=== PATIENT | male | born 1985 | race Caucasian/White ===

== ENCOUNTER 2019-03-30 06:13 | Observation (INO) | payer OTHER, SELFPAY ==
[2019-03-19 12:43] VITALS: BMI 27.5
[2019-03-30] VITALS (15 sets, daily range): BP systolic 104–142; BP diastolic 60–96; PULSE 55–86; RESP 10–20; TEMP 36.1–37.2; O2SAT 94–100; BMI 25.9
--- NOTE | 2019-03-30 | DI.RAD.S_ITS ---
PROCEDURE: XR CERVICAL SPINE 2V OR 3V INDICATIONS: ACDF TECHNIQUE: 2 view(s) of the cervical spine were acquired. COMPARISON: [facility], XR CERVICAL SPINE 2 OR 3 VIEWS, 01/19/2019, 12:02. FINDINGS: Bones: Postsurgical changes compatible with C5-C6 and C6-C7 disc prosthesis placement noted. Soft tissues: No prevertebral soft tissue swelling. IMPRESSION: Expected postsurgical change for C5-C6 and C6-C7 disc prosthesis placement. Dictated by: Shauna Reyes MD, PhD on 03/30/2019 at 9:39 Approved by: Shauna Reyes MD, PhD on 03/30/2019 at 9:40
[2019-03-30] MEDS: LACTATED RINGERS 1,000 ML 42 ML IV (07:00)
--- NOTE | 2019-03-30 07:15 | SUR.PREOP ---
Addendum entered by Tarsha Montiel R.N. 03/30/19 09:56: CHARTED IN ERROR RIGHT ARM, SHOULD OF CHARTED LEFT ARM AND FINGERS ON LEFT HAND. Original Note: pt reports has been experiencing numbness and tingling in right arm into all fingers on right hand.
--- NOTE | 2019-03-30 07:28 | PM.PREOP ---
Pre-operative Note Interval Note History & Physical reviewed/Exam performed by Physician: Yes Changes to H&P: No
--- NOTE | 2019-03-30 07:33 | SUR.PREOP ---
DR. NARANJO AND DR. MCLAIN NOTIFIED OF PT FASTING BG READING. PT ASYMPTOMATIC AT THIS TIME. NO NEW ORDERS RECEIVED FROM MDS.
[2019-03-30] MEDS: CEFAZOLIN 2 GM/100 ML FROZ.PIGGY IV (07:43)
--- NOTE | 2019-03-30 08:18 | SUR.OPER ---
Supine on padded OR bed, head on gel doughnut , bilateral arms padded and tucked at side, legs uncrossed, safety belt at thigh, tape over blanket over lower legs .
[2019-03-30] MEDS: THROMBIN (RECOMBINANT) 5,000 UNIT VIAL 5000 UNIT TOP (08:29)
[2019-03-30] MEDS: SODIUM CHLORIDE 0.9% 1,000 ML, GENTAMICIN 80 MG IRR (08:30)
[2019-03-30] MEDS: ACETAMINOPHEN 1,000 MG/100 ML VIAL 1000 MG IV (08:52)
[2019-03-30] MEDS: BUPIVACAINE 0.5% W/ EPI (PF) VIAL 30 ML INJ (09:09)
--- NOTE | 2019-03-30 09:13 | PM.OP.1 ---
Operative Date/Time/Diagnoses Date of procedure: 03/30/19 Time of procedure: 09:13 Pre-op diagnosis: Cervical disc herniation with radiculopathy Post-op diagnosis: same Procedure & Clinicians Procedure: C5-6, C6-7 anterior diskectomy an artificial disc replacement Use of microscope Same procedure as scheduled: Yes Indications: [age] year old male with intractable pain from cervical disc herniations. They had failed conservative management and requested operative intervention. Risks and benefits of surgery were discussed and appropriate consents were obtained. Surgeon: Praful Rodgers Vacuum Forming Machine Operator: Em Orozco Anesthesia Type: General Operative Notes Findings: None Closure Type: primary Specimen(s): none sent Prosthetic devices, grafts, tissues, transplants, or devices: Stephenie Mobi-C Estimated Blood Loss (mL): 5 Blood products transfused: none Procedure in detail: Patient was brought to the operating room and intubated on the table. A time-out was performed. Preoperative antibiotics were given. The neck was prepped and draped in the standard sterile fashion. Using a skin fold, we made a 3 cm oblique incision on the left side. We used Bovie to go through the platysma and then did a standard anterolateral blunt dissection down to the precervical fascia. Fascia was nicked and elevated up. A marker was placed and x-ray was taken for localization. We then subperiosteally elevated up the longus colli muscles. Self-retaining retractors were placed. [place] pins were placed under x-ray guidance to be parallel to the endplates. We then brought in the microscope. A scalpel used to perform an annulotomy. We then used a combination of pituitaries and curettes and Kerrison to perform a complete anterior diskectomy at C6-7. We took down the PLL and used Kerrison to remove any posterior disc material and osteophytes. At the end we could from the nerve hook cephalad caudally and out the foramen and everything was opened. We distracted open with the parallel odd job laborer. We then used the horseshoes for sizing. We then used the trials. We then inserted a 5 x 15 x 15 mm size Mobi-C artificial disc replacement under fluoroscopic guidance for positioning. The traction was released and x-ray was checked again. We then went up to the C5-6 level. The retractors were positioned and opened. A complete diskectomy was performed with scalpel, pituitaries, curettes, and Kerrisons. We took down the PLL. We removed disc fragments until we could easily run a nerve hook and there was no further pressure in the foramen or posterior to the vertebral body wall. We then trialed and placed another 5 x 15 x 15 mm Mobi-C at C5-6 using fluoroscopy. The traction was released and an x-ray was checked again. The self-retaining retractors and Detroit pins were removed and final x-rays taken. The wound was irrigated. There was no bleeding. The carotid was beating nicely. The platysma was closed. The superficial was closed. The skin was closed. A sterile dressing was placed. They were then extubated and brought to recovery room with no complications. Complications: none Condition: stable Disposition: PACU Plan for aftercare: Overnight admission. Up with physical therapy. Soft collar for comfort.
[2019-03-30] MEDS: fentaNYL 100 MCG/2 ML INJ 50 MCG IV ×2 (09:30→09:40)
[2019-03-30] MEDS: HYDROMORPHONE 2 MG INJ 0.25 MG IV ×4 (09:35→09:50)
--- NOTE | 2019-03-30 09:54 | SUR.PHASEI ---
REPORT CALLED TO SUSHIL GARCIA ON ACUTE CARE FLOOR. PT IN STABLE CONDITION, VSS. PT RESTING IN BED WITH EYES CLOSED, EASILY AROUSABLE TO VOICE WHEN SPOKEN TO. SURGICAL SITE OBSERVED TO BE C/D/I. SOFT COLLAR IN PLACE. IV SITE CLEAR AND INFUSING WITHOUT DIFFICULTLY. PT DENIES ANY NAUSEA AND STATES PAIN IS AT TOLERABLE LEVEL AT THIS TIME. PT APPEARS COMFORTABLE AT THIS TIME.
--- NOTE | 2019-03-30 10:18 | SUR.PHASEI ---
PT TRANSFERRED TO ACUTE CARE FLOOR IN STABLE CONDITION. PT ALERT AND TALKING TO RN DURING TRANSPORT. BEDSIDE REPORT GIVEN TO SUSHIL GARCIA UPON ARRIVAL. PT AT BEDSIDE. TRANSFERRED CARE OF PT TO SUSHIL GARCIA AT THAT TIME.
[2019-03-30] MEDS: LACTATED RINGERS 1,000 ML 125 ML IV (10:30)
--- NOTE | 2019-03-30 11:44 | PC.NURSE ---
Addendum entered by Valerie Schmitt R.N. 03/30/19 13:24: Pt up and voided earlier, given 2 vicodin and helpful for pain. Pt is hoping to go home later this afternoon. home to deal with their children. He will call her for a ride if he gets to discharge home. Original Note: Pt admitted to room around 1045. Dressing to anterior neck is cdi s drainage. Soft collar in place. Pt is on LR at 125cc/hr. He is visiting with in room. Denies pain at this time and is also trying to nap. Tolerated some applesauce and pudding without any nausea. Pt will be admitted to the hospital after his nap.
[2019-03-30] MEDS: HYDROCODONE/ACET 5/325 TABLET 2 TAB PO (12:44)
--- NOTE | 2019-03-30 14:25 | PM.PNPO.1 ---
Subjective Date Patient Seen: 03/30/19 Time Patient Seen: 14:25 Interval history: He is doing great. He has some ache and the bottom of his neck but no more radicular symptoms in the arms. He is not having any shortness of breath or difficulty swallowing. He just comfortably 8 his lunch without difficulty. He has been up and walking around. He requested discharge home Exam Vital Signs (past 8 hours): - 03/30/19 06:49 03/30/19 09:26 03/30/19 09:31 Temperature 97.2 F L 97.1 F L Pulse Rate 71 86 86 Respiratory Rate 15 10 L 10 L Blood Pressure 125/86 133/85 125/91 H Pulse Oximetry 100 97 97 03/30/19 09:36 03/30/19 09:41 03/30/19 09:46 Temperature 98.1 F Pulse Rate 80 75 76 Respiratory Rate 10 L 14 12 Blood Pressure 131/86 120/83 118/82 Pulse Oximetry 97 94 95 03/30/19 09:51 03/30/19 09:55 03/30/19 10:06 Temperature 97.0 F L 98.4 F Pulse Rate 61 66 62 Respiratory Rate 11 L 11 L 11 L Blood Pressure 113/76 116/76 111/72 Pulse Oximetry 98 95 98 03/30/19 10:15 03/30/19 10:45 03/30/19 11:15 Temperature 99.0 F 97.2 F L 96.9 F L Pulse Rate 65 57 L 55 L Respiratory Rate 16 16 16 Blood Pressure 117/79 112/66 104/60 Pulse Oximetry 97 95 95 03/30/19 12:00 03/30/19 12:15 03/30/19 13:15 Temperature 98.7 F 97.6 F 97.5 F L Pulse Rate 75 76 76 Respiratory Rate 20 16 16 Blood Pressure 142/96 H 108/68 113/61 Pulse Oximetry 95 96 96 Oxygen Delivery Method Room Air Oxygen Flow Rate 0 Const Orientation: alert and oriented x3 Back/Spine/Pelvis Other: Dressing CDI. 5/5 motor both upper extremities Assessment & Plan Post-op Postoperative Procedures Operation Date: 03/30/19 07:45 Actual Procedures Side Surgeon p C5-6 & C6-7 Anterior discectomy and artifical disc replacement Praful Rodgers MD he is doing very well. I am comfortable with him going home at this point. Quality VTE Deep Vein Thrombosis/Pulmonary Embolism Present on Admission: No
--- NOTE | 2019-03-30 14:45 | PT.IIE ---
Current Diagnoses Other cervical disc displacement, unspecified cervical region (03/30/19) Surgery Performed Operation Date: 03/30/19 07:45 Actual Procedures p C5-6 & C6-7 Anterior discectomy and artifical disc replacement - Praful Rodgers MD Surgical History (Last Updated 03/19/19 @ 13:09 by Mena Quiroga, RN) History of ear surgery (Acute) Medical History (Last Updated 03/19/19 @ 13:09 by Mena Quiroga, RN) Numbness and tingling in left arm (Acute) Rash (Acute) [place] teeth removed (Acute) Physical Therapy Inpatient Evaluation/Re-Eval M1 PT/OT-IP Prior Functional Status Start: 03/30/19 16:38 Freq: NEEDED Status: Active Protocol: Document 03/30/19 14:52 [facility] (Rec: 03/30/19 17:11 [facility] [id number]) Medical Review Prior Functional Status Medical History Reviewed Yes Communication Independent. Mobility and Gait Independent. Activities of Daily Living and IADL's Independent. Social History Household Members spouse children Living Arrangements House Number of Floors (Floors) Two Floors Number of Stairs To Enter/Railing? 3 steps and bilateral wide hand rails. 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 [employer] M2 PT-IP Current Condition Start: 03/30/19 17:11 Freq: NEEDED Status: Active Protocol: Document 03/30/19 14:45 AB (Rec: 03/30/19 17:42 AB [id number]) Physical Therapy Current Condition Current Condition Evaluation Date 03/30/19 Treatment Diagnosis s/p C5-7 ACDF; difficulty in walking Onset Date 03/30/19 Precautions Cervical Spine Precautions Soft Collar for Comfort No Heavy Lifting Log Roll M3 PT-IP Subjective Start: 03/30/19 17:11 Freq: NEEDED Status: Active Protocol: Document 03/30/19 14:45 AB (Rec: 03/30/19 17:42 AB [id number]) Subjective Physical Therapy Visit Type Type Initial Evaluation Visit Start Time 14:45 Visit Stop Time 15:19 Total Visit Minutes 34 Number of AS400 OPERATOR Visits 0 Physical Therapy Visit Comments Patient Comments pt agreeable to do PT Therapy Pain Assessment Pain When Pain Assessed At Rest Pain Present Pain Present Pain Reported Location neck Intensity 7 Scale Used Numeric (1 - 10) Pain Management Techniques Timing of Activity with Medications M4 PT-IP Mobility and Gait Start: 03/30/19 17:11 Freq: NEEDED Status: Active Protocol: Document 03/30/19 14:45 AB (Rec: 03/30/19 17:42 AB [id number]) PT-Bed Mobility Assessment Rolling Type of Rolling Log Rolling Level of Assist Standby Assistance Supine to Sit Supine to Sit Standby Assistance Sit to Supine Sit to Supine Standby Assistance Scooting Scooting to Edge of Bed Standby Assistance PT-Transfer Assessment Sit to and From Stand Sit to and from Stand Standby Assistance Equipment Transfer Assistive Device None Gait Belt Orthotic/Prosthetic Devices or Brace: Yes Gait Assessment Gait Gait Assistance Required: Standby Assistance Distance (Feet) 250 Able to Maintain Weight Bearing Status Yes During Gait Assistive Devices Assistive Device None Gait Belt Orthotic/Prosthetic Devices or Brace: Yes Stair Climbing Assessment Evaluation Level of Assist On Stairs Standby Assistance Devices Stair Climbing Assistive Devices Left Railing Technique/Endurance Stair Climbing Direction Ascend and Descend Stair Climbing Technique Step Over Step Number of Steps Climbed 3 Query Text: Stair Climbing Set # Repetitions (reps) 1 PT-Balance Assessment Sitting Balance and Reactions Static Sitting Balance Ability Good Dynamic Sitting Balance Ability Good Standing Balance and Reactions Static Standing Balance Ability Good Dynamic Standing Balance Ability Good M5 PT-IP Objective Assessments Start: 03/30/19 17:11 Freq: NEEDED Status: Active Protocol: Document 03/30/19 14:45 AB (Rec: 03/30/19 17:42 AB [id number]) Orientation Orientation/Cognition Level of Alertness Alert Orientation Name Age Birthday Month Date Year Day of Week Place Situation Language Function Ability No Deficits Noted Safety Awareness Understands Safety Issues Memory Description No Deficits Noted Gross Range of Motion Lower Extremity ROM Assessment Within Functional Limits Strength Lower Extremity Strength Assessment Bilaterally Impaired Hip 4-/5 Knee 4-/5 Ankle 4-/5 Coordination Assessment Gross Coordination Gross Coordination WNL Sensation Assessment Sensation Gross Sensation WNL Muscle Tone Muscle Tone WNL Yes M6 PT-IP Treatment Start: 03/30/19 17:11 Freq: NEEDED Status: Active Protocol: Document 03/30/19 14:45 AB (Rec: 03/30/19 17:42 AB [id number]) Physical Therapy Treatment Education Education Provided Precautions Weight Bearing Status Post-Op Packet Safety M7 PT-IP Assessment and Plan Start: 03/30/19 17:11 Freq: NEEDED Status: Active Protocol: Document 03/30/19 14:45 AB (Rec: 03/30/19 17:42 AB [id number]) PT Summary Assessment and Plan Potential Rehabilitation Potential Good Status of Condition at Evaluation Stable Summary Impairments Pain ROM Strength Balance Bed Mobility Transfers Gait Activity Tolerance Assessment Summary pt is doing well with mobility and plans to go home today with assistance from his spouse. Goals Bed Mobility Goal Independent Transfer Goal Independent Gait Goal Independent Gait Distance 250 Other Goals up/down 3 steps with 1 rail mod I Days to Meet Goals 3 Frequency of Treatment Frequency Of Treatment Once a Day Treatment Plan Physical Therapy Treatment Plan Bed Mobility Training Transfer Training Gait Training Therapeutic Exercise Balance Retraining Post Op Education Discharge Planning Hot or Cold Pack Neuromuscular Re-ed Coordination Retraining Manual Therapy Recommendations To Nursing Amount of Assist Needed Standby Assistance Discharge Recommendations PT Discharge Recommendations Home with Assistance
--- NOTE | 2019-03-30 14:59 | CM.DANOTE ---
Discharge Planning/Care Management DCP: assessment: case received, EMR reviewed. Pt is a 33 year old male who admitted this morning for a planned spinal/cercical surgery: Surgeon: Dr. Rodgers. Payer: [employer] Pt was expected to say overnight for recovery and an anticipated d/c home tomorrow. See now that Dr. Rodgers returned this afternoon, noted that pt was up independently, doing well and desired a d/c today and he ok'd him for same. P: home today, spouse picking him up. No d/c needs are identified beyond orthopedic followup. CM Discharge Assessment Start: 03/30/19 14:58 Freq: Status: Active Protocol: Document 03/30/19 14:58 ITV (Rec: 03/30/19 14:59 ITV [id number]) Discharge Planning Assessment Advance Directives? No: Declines further information History Provided By Patient Medical Record Prior Living Arrangements House Household Members spouse children Independent with ADL's Yes Is patient alert and oriented? Yes Comment no need, home shortly. Review Status In Process Next Review Type Continued Stay Review Pre-Anesthesia Assessment Start: 03/19/19 12:43 Freq: Status: Active Protocol: Document 03/19/19 12:43 CAB (Rec: 03/19/19 13:23 CAB [id number]) Pre-Anesthesia Assessment Patient Information Reviewed Via Phone Assessment Assessment Completed With Patient Primary Care Provider Sasha Christina Seen Specialist in Last 12 Months Yes Specialist Seen Orthopedist Primary Language Micronesian Dental Office Coordinator Required No Height 172.72 cm Weight 82.1 kg Body Mass Index (BMI) 27.5 Hearing Ability Normal Visual Assist Contacts Glasses Dentition Type Teeth, Natural Present Teeth, Broken Barriers to Learning None Other Aids No Hx Anesthesia Reactions No Hx Family Anesthesia Reaction No Hx Malignant Hyperthermia No Hx Blood Transfusions No Anesthesia Review Requested No Private Duty Nurse No alcohol intake current alcohol intake frequency a few times a week Smoking Status Current every day smoker Smoking packs per day 1 Substance Use Type does not use Pain Present Pain Reported Musculoskeletal Symptoms Joint Pain Limited Range of Motion Muscle Weakness Neck Pain Numbness History of Falling (Recent or History of No ) Patient is completely paralyzed or No completely immobile Mental Status Oriented to own ability Is patient on oxygen? No Does patient have SWIFT/SOB No Hx Sleep Apnea No Currently Taking a Beta Crystal No Can You Climb a Flight of Stairs Without Yes SOB Hx Chest Pain No Hx SOB No Hx Syncope or Dizziness No Anti-Coagulant Therapy No Has a Bundling Machine Operator No Cardiac Testing No Hx Pacemaker/ICD No Pacemaker Rep Required? 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 Marital Status Lives With spouse children Prior Living Arrangements House Number of Floors (Floors) Two Floors Support System Spouse Does the Patient Have Assistance After Yes Surgery Patient Discharge Plan Description Return Home Comment Pt advised possibly same day surgery Feels Safe in Current Environment Yes Been Physically Hurt or Threatened By a No Person in Current Environment Do you have thoughts of harming yourself None or others? Are you currently considering suicide? No Do you have a plan to hurt yourself or No Plan others? Do You Have Any Spiritual Beliefs That No May Affect Your HC Choices? Do You Have Any Cultural Practices That No May Affect Your HC Choices? Spiritual Referral None Who Can We Speak to About Patient's Care Family, friends Identifying Code for Release of Patient Declines to issue Information Health Care Proxy/Next of Kin Donna () Health Care Proxy Emergency Contact Name Donna () Emergency Contact Advance Directives? No: Declines further information PAC Instructions Durable medical equipment Medications to take/avoid Nasal antibiotic No ETOH/petroleum product on skin DOS NPO Post-op transportation Pre-surgical wash Sturdy shoes/comfortable clothes Do not bring valuables and remove jewelry
--- NOTE | 2019-03-30 17:11 | OT.IP.EVAL ---
Current Diagnoses Other cervical disc displacement, unspecified cervical region (03/30/19) Surgery Performed Operation Date: 03/30/19 07:45 Actual Procedures p C5-6 & C6-7 Anterior discectomy and artifical disc replacement - Praful Rodgers MD Past Medical History (Last Updated 03/19/19 @ 13:09 by Mena Quiroga, RN) Numbness and tingling in left arm (Acute) Rash (Acute) [place] teeth removed (Acute) Surgical History (Last Updated 03/19/19 @ 13:09 by Mena Quiroga RN) History of ear surgery (Acute) Occupational Therapy Inpatient Evaluation/Re-Eval M1 PT/OT-IP Prior Functional Status Start: 03/30/19 16:38 Freq: NEEDED Status: Active Protocol: Document 03/30/19 14:52 [facility] (Rec: 03/30/19 17:11 [facility] [id number]) Medical Review Prior Functional Status Medical History Reviewed Yes Communication Independent. Mobility and Gait Independent. Activities of Daily Living and IADL's Independent. Social History Household Members spouse children Living Arrangements House Number of Floors (Floors) Two Floors Number of Stairs To Enter/Railing? 3 steps and bilateral wide hand rails. 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 OT-IP Current Condition Start: 03/30/19 16:38 Freq: Status: Active Protocol: Document 03/30/19 14:52 [facility] (Rec: 03/30/19 17:11 [facility] [id number]) Occupational Therapy Current Condition Current Condition Evaluation Date 03/30/19 Treatment Diagnosis Cervical disc herniation Diagnosis Onset Date 03/30/19 Post Operative Precautions Cervical Spine Precautions Soft Collar for Comfort No Heavy Lifting Log Roll M3 OT- IP Subjective and Pain Start: 03/30/19 16:38 Freq: Status: Active Protocol: Document 03/30/19 14:52 [facility] (Rec: 03/30/19 17:11 [facility] [id number]) OT- Subjective Occupational Therapy Visit Type Type Initial Evaluation Visit Start Time 14:52 Visit Stop Time 15:17 Total Visit Minutes 25 Occupational Therapy Visit Comments Patient Comments Pt agreeable to get up and ready to go home. OT Pain Assessment Pain When Pain Assessed At Rest Pain Present Pain Present Pain Reported Location neck Intensity 7 Scale Used Numeric (1 - 10) M4 OT- IP ADL's Start: 03/30/19 16:38 Freq: Status: Active Protocol: Document 03/30/19 14:52 [facility] (Rec: 03/30/19 17:11 [facility] [id number]) OT REA-Ozne-Dyesata Comments OT Self-Feeding Comments Educated pt to eat softer foods , chew food up more thoroughly, and eat while sitting upright. OT ADL-Dressing General Eval Upper Body Dressing Ability Independent Lower Body Dressing Ability Standby Assistance Comments OT Dressing Comments Pt SBA while donning socks and shoes while standing. Pt needing initial cue to karol/ doff soft collar and afterwards independent. OT ADL-Bathing Comments OT Bathing Comments Pt states will do at home, recommended to have stand by to assist. M5 OT- IP IADL's Start: 03/30/19 16:38 Freq: Status: Active Protocol: Document 03/30/19 14:52 [facility] (Rec: 03/30/19 17:11 [facility] [id number]) OT-Instrumental Activities of Daily Living Home Safety Awareness Home Safety Comments Pt aware not to do any lifting and will have family to assist for all needs. M6 OT- IP Functional Cognition Start: 03/30/19 16:38 Freq: Status: Active Protocol: Document 03/30/19 14:52 [facility] (Rec: 03/30/19 17:11 [facility] [id number]) Cognitive Factors Limiting Selfcare Function Cognitive Ability Level of Alertness Alert Patient Orientation Name Age Birthday Month Date Year Day of Week Place Situation Attention Span Ability Capable of Focused Attention Capable of Sustained Attention Ability to Follow Commands Able to Follow Multi-Step Commands Memory Description No Deficits Noted Safety Awareness Underestimates Need for Assistance Problem Solving Ability No deficits Noted Cognitive Comments Cognitive Assessment Comments VC to slow down and to try not to turn his head excessively. OT- Vision and Hearing OT- Hearing Assessment OT- Hearing Assessment WFL M7 OT- IP Mobility and Balance Start: 03/30/19 16:38 Freq: Status: Active Protocol: Document 03/30/19 14:52 [facility] (Rec: 03/30/19 17:11 [facility] [email or web address]) OT- Bed Mobility Assessment Rolling Type of Rolling Log Rolling Supine to Sit Supine to Sit Assist Independent Sit to Supine Sit to Supine Assist Independent Scooting Scooting to Edge of Bed Independent OT-Transfer Assessment Sit to and From Stand Sit to and from Stand Independent Transfers Transfer Ability Independent Technique Transfer Destination Bed Chair Devices Transfer Assistive Devices None Comments Mobility Comments Pt independent with all bed mobility and ambulation needs. OT- Balance Assessment Sitting Balance and Reactions Static Sitting Balance Ability Normal Dynamic Sitting Balance Ability Normal Standing Balance and Reactions Static Standing Balance Ability Normal Dynamic Standing Balance Ability Good M8 OT- IP Objective Assessments Start: 03/30/19 16:38 Freq: Status: Active Protocol: Document 03/30/19 14:52 [facility] (Rec: 03/30/19 17:11 [facility] [email or web address]) OT Gross Range of Motion Upper Extremity Range of Motion Assessment Within Functional Limits OT Strength Upper Extremity Strength Assessment Within Functional Limits M9 OT- IP Assessment and Plan Start: 03/30/19 16:38 Freq: Status: Active Protocol: Document 03/30/19 14:52 [facility] (Rec: 03/30/19 17:11 [facility] [email or web address]) OT Summary Assessment and Plan Potential Rehabilitation Potential Good Analytic Complexity at Evaluation Low Summary OT Impairments Pain Progress Towards Goals Safe For Discharge Assessment Summary Pt being discharged, able to educate pt and needs for ADL's, pt and able to state and show good understanding and safety for all needs. Goals Days to Meet Goals 1 Frequency of Treatment Frequency Of Treatment Once a Day Treatment Plan OT Treatment Plan Discharge Planning Discharge Recommendations OT Discharge Recommendations Home with Assistance
== END 2019-03-30 15:25 | disposition home or self-care (01) | DRG 518 ==
PROVIDERS: Admitting Provider Orthopaedic Surgery; Visit Provider Orthopaedic Surgery
PROC: (CPT 22856; principal; 2019-03-30 07:45)
DX: M50.122 Cervical disc disorder at C5-C6 level with radiculopathy (principal); F17.210 Nicotine dependence, cigarettes, uncomplicated
CPT/HCPCS: 22856; 22858; 72040; 76000; 97161; 97165; C1776; G0378; G0379; J0131; J0690; J1100; J1170; J2250; J2405; J2704; J3010